=== PATIENT | female | born 1950 | race Caucasian/White ===

== ENCOUNTER 2020-09-15 09:35 | Outpatient (REF) | payer MEDICARE, SELFPAY ==
--- NOTE | 2020-09-15 09:43 | MM_ITS ---
EXAMINATION: BONE DENSITOMETRY CLINICAL INDICATION: Osteoporosis. COMPARISON: Previous BD dated 04/26/2018 and baseline BD dated 04/21/2016. TECHNIQUE: Using a [employer] DXA System (software version: 13.1) manufactured by [employer], dual-energy x-ray absorptiometry was performed of the lumbar spine and left hip. The images are of good technical quality. Summary results are attached. FINDINGS: AP SPINE L1-L4: Current: BMD 0.879 g/cm2, Z-score -1.0, T-score -2.5, osteoporosis, 3.1% decrease from previous, 0.7% decrease from baseline (<5% change is not significant). Prior: BMD 0.907 g/cm2. Baseline: BMD 0.885 g/cm2. LEFT FEMUR, NECK: Current: BMD 0.722 g/cm2, Z-score -0.6, T-score -2.3, osteopenia. Prior: BMD 0.723 g/cm2. Baseline: BMD 0.676 g/cm2. LEFT FEMUR, TOTAL: Current: BMD 0.795 g/cm2, Z-score -0.3, T-score -1.7, osteopenia, 0.5% increase from previous, 15.2% increase from baseline (<5% change is not significant). Prior: BMD 0.791 g/cm2. Baseline: BMD 0.690 g/cm2. IDENTIFIED RISK FACTORS: Secondary osteoporosis, glucocorticoids (chronic), menopause. HISTORY OF FRACTURE: None listed. MEDICATIONS: Calcium supplements or multivitamin, vitamin D. MM/XR DEXA axial skeleton IMPRESSION: 1. DIAGNOSIS: Osteoporosis based on the lowest T-score value of -2.5 in the lumbar spine applying World Health Organization criteria. 2. 10-YEAR FRACTURE RISK PREDICTION, FRAX: Major osteoporotic fracture (clinical spine, forearm, hip or shoulder) 21.9%. Hip fracture 6.2%. 3. Treatment Recommendations: NOF guidelines recommend consideration for treatment in postmenopausal women and men age 50 and older presenting with the following: -A hip or vertebral (clinical or morphometric) fracture. -T-score less than or equal to -2.5 at the femoral neck or spine after appropriate evaluation to exclude secondary causes. -Low bone mass at the hip or spine and a 10-year fracture probability by FRAX of greater than or equal to 3% for hip fracture or greater than or equal to 20% for major osteoporotic fracture based on the [place] adapted WHO algorithm. 4. Other Recommendations: All treatment decisions require clinical judgment and consideration of individual patient factors, including patient preferences, comorbidities, previous drug use, risk factors not captured in the FRAX model (e.g. frailty, falls, vitamin D deficiency, increased bone turnover, interval significant decline in bone density) and possible under or overestimation of fracture risk by FRAX. Additional medical evaluation for secondary cause of low bone mineral density may be appropriate. FUTURE SCAN RECOMMENDATION: People with diagnosed cases of osteoporosis or at high risk for fracture should have regular bone mineral density tests. For patients eligible for Medicare, routine testing is allowed once every 2 years. The testing frequency can be increased to one year for patients who have rapidly progressing disease, those who are receiving or discontinuing medical therapy to restore bone mass, or have additional risk factors.
== END 2020-09-15 09:36 | disposition home or self-care (01) ==
LOC: HO.MAMMO 09:35
PROVIDERS: PCP Internal Medicine; Visit Provider Internal Medicine
DX: M81.0 Age-related osteoporosis without current pathological fracture (principal)
CPT/HCPCS: 77080

== ENCOUNTER 2021-07-14 09:52 | Outpatient (REF) | payer MEDICARE, SELFPAY ==
--- NOTE | ~2021-07-14 | MM_ITS ---
EXAMINATION: MM SCREENING DIGITAL BREAST TOMOSYNTHESIS, BILATERAL CLINICAL INFORMATION: Screening. Asymptomatic. Right breast biopsy 2016 (benign fibrotic breast tissue). The lifetime risk of breast cancer based on the Tyrer-Cuzick Model is 4%. COMPARISON: Mammography: 07/08/2020, 07/03/2019, 06/08/2018 TECHNIQUE: Digital breast tomosynthesis is performed in both the craniocaudal and mediolateral oblique views along with computer-aided detection (CAD). Synthesized 2D images are generated from the tomosynthesis. FINDINGS: There are scattered areas of fibroglandular density (ACR BI-RADS breast composition Category b). There are no significant masses, abnormal calcifications, or other abnormalities. Parenchymal pattern is similar to prior studies. There is stable parenchymal asymmetry mid 4:00 right breast with adjacent biopsy clip marker. No developing density. The axilla are unremarkable. There are no significant changes. MM/MM tomosynthesis screening BI IMPRESSION: No mammographic evidence of malignancy. ASSESSMENT: BI-RADS 2: Benign RECOMMENDATION: Routine annual mammography screening. This patient's information was entered into a reminder system with a target due date for their next mammogram.
== END 2021-07-14 09:53 | disposition home or self-care (01) ==
LOC: HO.MAMMO 09:52
PROVIDERS: PCP Internal Medicine; Visit Provider Internal Medicine
DX: Z12.31 Encounter for screening mammogram for malignant neoplasm of breast (principal)
CPT/HCPCS: 77063; 77067

== ENCOUNTER 2023-03-08 07:19 | Outpatient (REF) | payer MEDICARE, SELFPAY ==
[2023-03-08 07:27] LABS: MANUAL DIFF FLAG NO
[2023-03-08 08:04] LABS: Basophils Absolute Auto 0.1 X10*3/uL (0.0-0.2); Basophils Percent Auto 1.2 % (0-2); Eosinophils Absolute Auto 0.2 X10*3/uL (0.0-0.4); Eosinophils Percent Auto 2.3 % (0-4); Hematocrit 38.8 % (37.0-47.0); Hemoglobin 12.3 g/dl (12.0-16.0); Imm Gran Abs Auto 0.02 X10*3/uL (0.00-0.03); Imm Gran Pct Auto 0.3 % (0.0-0.4); Lymphocytes Absolute Auto 2.1 X10*3/uL (1.2-4.9); Lymphocytes Percent Auto 28.2 % (20-40); Mean Corpuscular HGB Conc 31.7 g/dl (31.0-35.0); Mean Corpuscular Hemoglobin 28.9 pg (27.0-33.0); Mean Corpuscular Volume 91.3 fL (80.0-98.0); Mean Platelet Volume 9.7 fL (9.4-12.3); Monocytes Absolute Auto 0.8 X10*3/uL (0.1-1.2); Monocytes Percent Auto 10.8 % (2-11); Neutrophils Absolute Auto 4.3 x10*3/uL (2.0-8.3); Neutrophils Percent Auto 57.2 % (45-73); Platelet Count 376 X10*3/uL (160-400); Red Blood Count 4.25 X10*6/uL (4.20-5.50); Red Cell Distribution Width 12.3 % (11.0-16.0); White Blood Count 7.4 X10*3/uL (4.8-10.8)
[2023-03-08 08:16] LABS: Alanine Aminotransferase 22 U/L (0-31); Albumin Level 4.2 g/dL (3.5-5.0); Alkaline Phosphatase 73 U/L (39-117); Anion Gap 13 (12-20); Aspartate Amino Transferase 23 U/L (5-31); Bilirubin Total 0.4 mg/dL (0.0-1.0); Blood Urea Nitrogen 7 mg/dL (9-16); Calcium 9.3 mg/dL (8.4-10.2); Carbon Dioxide 30 mmol/L (22-29); Chloride 107 mmol/L (96-108); Cholesterol 214 mg/dL; Estimated Glomerular Filt Rate > 60; Glucose Random 90 mg/dL (60-115); HDL Cholesterol 66 mg/dL; LDL Cholesterol Calculated 134 mg/dl; Potassium 4.5 mmol/L (3.3-5.1); Sodium 145 mmol/L (135-145); Total Protein 6.3 g/dL (6.5-8.0); Triglycerides 70 mg/dL
[2023-03-08 08:45] LABS: Folate 10.8 ng/mL (> or = 4.0); Free T4 (Free Thyroxine) 0.88 ng/dL (0.71-1.85); Thyroid Stimulating Hormone 2.64 uIU/mL (0.32-4.0); Vitamin B12 405 pg/mL (200-900); Vitamin D 25-OH Total 35.7 ng/mL (>30)
== END 2023-03-08 07:20 | disposition home or self-care (01) ==
LOC: HO.LAB 07:19
PROVIDERS: PCP Internal Medicine; Visit Provider Internal Medicine
DX: E78.00 Pure hypercholesterolemia, unspecified (principal); M81.0 Age-related osteoporosis without current pathological fracture
CPT/HCPCS: 36415; 80053; 80061; 82306; 82607; 82746; 84439; 84443; 85025

== ENCOUNTER 2023-04-06 08:27 | Outpatient (REF) | payer MEDICARE, SELFPAY ==
--- NOTE | ~2023-04-06 | MM_ITS ---
EXAMINATION: MM SCREENING DIGITAL BREAST TOMOSYNTHESIS, BILATERAL CLINICAL INFORMATION: Screening. Asymptomatic. The lifetime risk of breast cancer based on the Tyrer-Cuzick Model is 4%. COMPARISON: Mammography: 07/14/2021, 07/08/2020, 07/03/2019, 06/08/2018 12/08/2017, 06/06/2017 TECHNIQUE: Digital breast tomosynthesis is performed in both the craniocaudal and mediolateral oblique views along with computer-aided detection (CAD). Synthesized 2D images are generated from the tomosynthesis. FINDINGS: There are scattered areas of fibroglandular density (ACR BI-RADS breast composition Category b). There are no significant masses, abnormal calcifications, or other abnormalities. There is fibronodular parenchymal pattern similar to prior exams. There is no developing density or architectural abnormality. Biopsy clip marker again seen mid lower inner right breast. The axilla and skin contours are unremarkable. No significant changes from prior studies. MM/MM tomosynthesis screening BI IMPRESSION: No mammographic evidence of malignancy. ASSESSMENT: BI-RADS 2: Benign RECOMMENDATION: Routine annual mammography screening. This patient's information was entered into a reminder system with a target due date for their next mammogram.
--- NOTE | ~2023-04-06 | MM_ITS ---
EXAMINATION: BONE DENSITOMETRY CLINICAL INDICATION: Age-related osteoporosis without current pathological fracture. COMPARISON: Previous BD dated 09/15/2020 and baseline BD dated 04/21/2016. TECHNIQUE: Using a [employer] DXA System (software version: 13.1) manufactured by [employer] dual-energy x-ray absorptiometry was performed of the lumbar spine and left hip. The images are of good technical quality. Summary results are attached. FINDINGS: AP SPINE L1-L4: Current: BMD 0.910 g/cm2, Z-score -0.6, T-score -2.3, osteopenia, 3.5% increase from previous, 2.8% increase from baseline (<5% change is not significant). Prior: BMD 0.879 g/cm2. Baseline: BMD 0.885 g/cm2. LEFT FEMUR, NECK: Current: BMD 0.643 g/cm2, Z-score -1.0, T-score -2.8, osteoporosis. Prior: BMD 0.722 g/cm2. Baseline: BMD 0.676 g/cm2. LEFT FEMUR, TOTAL: Current: BMD 0.731 g/cm2, Z-score -0.6, T-score -2.2, osteopenia, 8.1% decrease from previous, 5.9% increase from baseline (<5% change is not significant). Prior: BMD 0.795 g/cm2. Baseline: BMD 0.690 g/cm2. IDENTIFIED RISK FACTORS: Secondary osteoporosis (hyperthyroidism). Chronic glucocorticoids. Menopause. HISTORY OF FRACTURE: None listed. MEDICATIONS: Vitamin D. MM/XR DEXA axial skeleton IMPRESSION: 1. DIAGNOSIS: Osteoporosis based on the lowest T-score value of -2.8 in the femoral neck applying World Health Organization criteria. 2. 10-YEAR FRACTURE RISK PREDICTION, FRAX: According to the guidelines, FRAX calculation should only be performed on patients in the osteopenia bone density category.?Therefore, FRAX was not performed on this patient.? 3. Treatment Recommendations: NOF guidelines recommend consideration for treatment in postmenopausal women and men age 50 and older presenting with the following: -A hip or vertebral (clinical or morphometric) fracture. -T-score less than or equal to -2.5 at the femoral neck or spine after appropriate evaluation to exclude secondary causes. -Low bone mass at the hip or spine and a 10-year fracture probability by FRAX of greater than or equal to 3% for hip fracture or greater than or equal to 20% for major osteoporotic fracture based on the [place] adapted WHO algorithm. 4. Other Recommendations: All treatment decisions require clinical judgment and consideration of individual patient factors, including patient preferences, comorbidities, previous drug use, risk factors not captured in the FRAX model (e.g. frailty, falls, vitamin D deficiency, increased bone turnover, interval significant decline in bone density) and possible under or overestimation of fracture risk by FRAX. Additional medical evaluation for secondary cause of low bone mineral density may be appropriate. FUTURE SCAN RECOMMENDATION: People with diagnosed cases of osteoporosis or at high risk for fracture should have regular bone mineral density tests. For patients eligible for Medicare, routine testing is allowed once every 2 years. The testing frequency can be increased to one year for patients who have rapidly progressing disease, those who are receiving or discontinuing medical therapy to restore bone mass, or have additional risk factors.
== END 2023-04-06 08:28 | disposition home or self-care (01) ==
LOC: HO.MAMMO 08:27
PROVIDERS: PCP Internal Medicine; Visit Provider Internal Medicine
DX: Z12.31 Encounter for screening mammogram for malignant neoplasm of breast (principal); Z13.820 Encounter for screening for osteoporosis; Z78.0 Asymptomatic menopausal state; M81.0 Age-related osteoporosis without current pathological fracture
CPT/HCPCS: 77063; 77067; 77080

== ENCOUNTER 2024-02-28 12:19 | Outpatient (AMB) | payer MEDICARE, SELFPAY ==
[2024-02-28 12:24] VITALS: BP 130/72; PULSE 67; O2SAT 98; BMI 26.2
--- NOTE | 2024-02-28 12:24 | MHC.PC.OV ---
Vital Signs 02/28/24 12:24 Height 5 ft 5.5 in Weight 160 lb BMI 26.2 BP 130/72 Blood Pressure Location Lt brachial Position Sitting Pulse 67 Pulse Source Pulse Oximeter Pulse Oximetry (%) 98 Oxygen Delivery Method Room Air Intake Visit Reasons: PE Allergies No Known Allergies [No Known Allergies*] Allergy (Verified 02/28/24 12:25) Medication List - Last Reconciled 02/28/24 by Birgit Taveras MD albuterol sulfate 90 mcg/actuation 2 puffs PO Q6H PRN cholecalciferol (vitamin D3) 50 mcg PO DAILY [id number]-Mn 500-400-667 mg-mg-unit caps PO [herbs by doctor ] Tobacco use date assessed: 02/28/24 Fall risk assessment: No Falls in past year Last assessed Fall Risk: 02/28/24 Dental Screening Dental Screen Date: 02/28/24 Did you have a dental visit in the last 12 months?: Yes Did you have a dental problem in the last 6 months where you did not have access to dental care?: No Was dental information given to patient?: Patient has dentist HPI PE HPI Details 74-year-old female with a history of asthma hypercholesterolemia osteoporosis coming in for physical exam. Patient had an elevated blood pressure at that time and advised to monitor. [facility] Medical History (Updated 02/28/24 @ 12:30 by Birgit Taveras MD) Colon cancer screening Breast cancer screening Surgical History (Updated 02/15/23 @ 20:26 by Birgit Taveras MD) History of nasal surgery Hx of tonsillectomy Family History (Updated 02/21/23 @ 12:59 by Gwendolyn Lynn CMA) Mother Dementia Father Diabetes Brother No problems noted. Sister No problems noted. Social History (Updated 02/28/24 @ 12:36 by Birgit Taveras MD) Housing: Apartment Alcohol intake: current Comment: once Q 3 months glass of wine Patient Tobacco Use Status: Former Tobacco user Quit Date: 1985 Tobacco use type: Cigarette Years Smoked: 1985 quit e-Cigarette/Vaping Use: Never Used Second Hand Smoke Exposure: No Current occupational status: employed Cognitive needs: No Hearing needs: No Vision needs: Yes Questionnaire PHQ-9 Over the last 2 weeks, how often have you been bothered by any of the following problems? 1. Little interest or pleasure in doing things: not at all 2. Feeling down, depressed, or hopeless: not at all 3. Trouble falling or staying asleep, or sleeping too much: not at all 4. Feeling tired or having little energy: not at all 5. Poor appetite or overeating: not at all 6. Feeling bad about yourself - or that you are a failure or have let yourself or your family down: not at all 7. Trouble concentrating on things, such as reading the newspaper or watching television: not at all 8. Moving or speaking so slowly that other people could have noticed. Or the opposite - being so fidgety or restless that you have been moving around a lot more than usual: not at all 9. Thoughts that you would be better off or of hurting yourself in some way: not at all Total score: 0 Depression Screening Interpretation: Negative Depression Screening Done: Yes Source: Developed by Drs. Bj Macedo, Yolanda Sylvester, Omar White and colleagues, with an educational gareth from [employer]. Thrive Questionnaire Date Thrive assessed: 02/28/24 I am a: Patient What is your living situation today?: I have a steady place to live Within the past 12 months, did the food you bought not last and you didn't have the money to get more?: Never true Within the past 12 months, did you worry whether your food would run out before you got money to buy more?: Never true Do you have trouble paying for medicines?: No Do you have trouble getting transportation to medical appointments?: No Do you have trouble paying your heating and electricity bill?: No Do you have trouble taking care of your child, family member or friend?: No Do you have trouble with day-to-day activities such as bathing, preparing meals, shopping, managing finances, etc.?: No Are you currently unemployed and looking for a job?: No Are you interested in more education?: No Currently or been in a relationship where the following occur: no concerns reported THRIVE Score: 0 AUDIT C Alcohol Use Questionnaire (AUDIT-C) 1. How often do you have a drink containing alcohol?: Monthly or less 2. How many drinks containing alcohol do you have on a typical day when you are drinking?: 1 or 2 3. How often do you have six or more drinks on one occasion?: Never Total Score: 1 YORDAN-7 AMB Questionnaire YORDAN-7 Date YORDAN - 7 assessed: 02/28/24 Feeling nervous, anxious, or on edge: 0 = Not at all Not being able to stop or control worryin = Not at all Worrying too much about different things: 0 = Not at all Trouble relaxin = Not at all Being so restless that it is hard to sit still: 0 = Not at all Becoming easily annoyed or irritable: 0 = Not at all Feeling afraid as if something awful might happen: 0 = Not at all Total YORDAN-7 score (0-4 normal; 5-9 mild; 10-14 moderate; 15-21 severe): 0 Source: Developed by Drs. Bj Macedo, Yolanda Sylvester, Omar White and colleagues, with an educational gareth from [employer]. Review of Systems Const Denies poor appetite and Denies weakness Eyes Denies no additional complaints ENT Reports Normal hearing present, Denies dizziness, Denies nasal congestion, Denies tinnitus and Denies sore throat Card Denies chest pain, Denies syncope, Denies rapid heart rate and Denies dyspnea Resp Denies cough and Denies dyspnea GI Denies change in stool character, Reports constipation, Denies diarrhea, Denies nausea and Denies vomiting Denies urinary frequency, Denies difficulty voiding and Denies dysuria Neuro Reports Normal hearing present, Denies confusion, Denies dizziness, Denies syncope and Denies weakness Psych Denies confusion Physical exam (Primary Care) Vital Signs: Last Vital Signs Pulse 67 02/28/24 12:24 BP 130/72 02/28/24 12:24 Pulse Ox 98 02/28/24 12:24 Oxygen Delivery Method Room Air 02/28/24 12:24 BMI result Body Mass Index 26.2 Tobacco/Smoking Status: Tobacco use Status Tobacco use date assessed 02/28/24 02/28/24 12:30 Patient Tobacco Use Status Former Tobacco user 02/28/24 12:36 Tobacco use type Cigarette 02/28/24 12:36 e-Cigarette/Vaping Use Never Used 02/28/24 12:36 PHQ-9: PHQ-9 Score PHQ-9: Total score 0 02/28/24 12:30 Depression Screening Interpretation: Negative Thrive Assessment: Date of Thrive Assessment Date Thrive assessed 02/28/24 02/28/24 12:30 Currently or been in a relationship where the following occur: no concerns reported Const General: No confusion Orientation/consciousness: No confusion HENMT Head: Yes normocephalic Ears: external ears normal and TM's normal bilaterally Face and sinus: Yes normal facial exam Mouth: moist mucous membranes Throat: Yes tonsils normal Eyes Conjunctivae: conjunctivae normal Pupils: Equal, round and reactive pupils present and Pupil accommodation reflex normal Direct Ophthalmoscopy: normal light reflex Neck Neck: No lymphadenopathy Thyroid: Thyroid normal Chest Chest palpation & inspection: normal inspection of the chest Resp Effort & Inspection: normal respiratory effort and no audible wheezes Auscultation: clear to auscultation bilaterally, no crackles, no wheezes and lung sounds not diminished Cardio Rate: regular rate Rhythm: regular rhythm Peripheral pulses: radial pulses present and dorsalis pedis present GI Palpation (GI): no masses Auscultation: normal bowel sounds and normoactive bowel sounds Rectal Exam - Female: deferred Skin General skin exam: no rashes or lesions noted Rashes: no rashes Neuro General: No confusion Cranial nerves: Yes Equal, round and reactive pupils present and Yes Normal hearing present Cognition (Neuro): normal cognition Gait exam (Neuro): Normal gait present Motor exam (neuro): 5/5 motor strength present throughout Deep tendon reflexes (DTR's): Right brachioradialis reflex intensity grade: 2+, Left brachioradialis reflex intensity grade: 2+, Right patellar reflex intensity grade: 2+ and Left patellar reflex intensity grade: 2+ Extrem General: No edema Assessment and Plan Assessment & Plan (1) Annual physical exam: Code(s): Z00.00 - Encounter for general adult medical examination without abnormal findings (2) Osteoporosis: Code(s): M81.0 - Age-related osteoporosis without current pathological fracture Plan: Continue with vitamin-D, have adequate calcium in the diet keep active discussion about treatment. (3) Hypercholesterolemia: Code(s): E78.00 - Pure hypercholesterolemia, unspecified Plan: Avoid fried foods, chicken skin, eggs, butter margarine, pastries and meat. Be it pork or beef they have a lot of cholesterol LDL goal of less than 130 and triglyceride of less than 150. (4) Asthma: Code(s): J45.909 - Unspecified asthma, uncomplicated Plan: Continue with the inhaler as needed (5) Blood pressure elevated without history of HTN: Code(s): R03.0 - Elevated blood-pressure reading, without diagnosis of hypertension Plan: Continue to monitor blood pressure (6) Colon cancer screening: Comment: Declined colonoscopy, Cologuard April 01- Code(s): Z12.11 - Encounter for screening for malignant neoplasm of colon Plan: Cologuard test March 2023 negative Coding Level of Care Code Est Pt Prev Care >65y(21333) Diagnoses Annual physical exam Z00.00 Osteoporosis M81.0 Hypercholesterolemia E78.00 Asthma J45.909 Blood pressure elevated without history of HTN R03.0 Colon cancer screening Z12.11
== END 2024-02-28 12:50 | disposition home or self-care (01) ==
PROVIDERS: Visit Provider Internal Medicine
DX: Z00.00 Encounter for general adult medical examination without abnormal findings (principal); M81.0 Age-related osteoporosis without current pathological fracture; E78.00 Pure hypercholesterolemia, unspecified; J45.909 Unspecified asthma, uncomplicated; R03.0 Elevated blood-pressure reading, without diagnosis of hypertension; Z12.11 Encounter for screening for malignant neoplasm of colon
CPT/HCPCS: 99397

== ENCOUNTER 2025-03-05 12:27 | Outpatient (AMB) | payer MEDICARE, SELFPAY ==
--- NOTE | 2025-03-05 12:42 | A.OFFPC_ITS ---
Vital Signs 03/05/25 12:44 03/05/25 13:09 Height 5 ft 5.5 in Weight 161 lb 2 oz BMI 26.4 BP 140/80 H 130/70 Blood Pressure Location Lt brachial Lt brachial Position Sitting Sitting Pulse 64 Pulse Source Pulse Oximeter Temp 97.5 F Temp Source Temporal Artery Scan Pulse Oximetry (%) 97 Oxygen Delivery Method Room Air Intake Visit Reasons: Annual exam - see comments Intake Note: Patient is here today for a physical. 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 per policy Accompanied by: Self / Same As Patient Allergies No Known Allergies [No Known Allergies*] Allergy (Verified 03/05/25 12:43) Medication List - Last Reconciled 03/05/25 by Birgit Taveras MD cholecalciferol (vitamin D3) 50 mcg PO DAILY [id number]-Mn 500-400-667 mg-mg-unit caps PO [herbs by doctor ] [NUTRAVIEW- Melaluca ] Tobacco use date assessed: 03/05/25 Fall risk assessment: No Falls in past year Last assessed Fall Risk: 03/05/25 Dental Screening Dental Screen Date: 03/05/25 Did you have a dental visit in the last 12 months?: Yes Did you have a dental problem in the last 6 months where you did not have access to dental care?: No Was dental information given to patient?: Patient has dentist [facility] Medical History (Updated 02/28/24 @ 12:30 by Birgit Taveras MD) Colon cancer screening Breast cancer screening Surgical History History of nasal surgery Hx of tonsillectomy Family History Mother Dementia Father Diabetes Brother No problems noted. Sister No problems noted. Social History (Updated 03/05/25 @ 13:13 by Birgit Taveras MD) Housing: Apartment Alcohol intake: current Comment: once Q 6 months glass of wine Patient Tobacco Use Status: Former Tobacco user Tobacco use type: Cigarette Years Smoked: 1985 quit e-Cigarette/Vaping Use: Never Used Second Hand Smoke Exposure: Yes service: No Current occupational status: employed Cognitive needs: No Hearing needs: No Vision needs: Yes Questionnaire PHQ-9 Over the last 2 weeks, how often have you been bothered by any of the following problems? 1. Little interest or pleasure in doing things: not at all 2. Feeling down, depressed, or hopeless: not at all 3. Trouble falling or staying asleep, or sleeping too much: not at all 4. Feeling tired or having little energy: not at all 5. Poor appetite or overeating: not at all 6. Feeling bad about yourself - or that you are a failure or have let yourself or your family down: not at all 7. Trouble concentrating on things, such as reading the newspaper or watching television: not at all 8. Moving or speaking so slowly that other people could have noticed. Or the opposite - being so fidgety or restless that you have been moving around a lot more than usual: not at all 9. Thoughts that you would be better off or of hurting yourself in some way: not at all Total score: 0 Depression Screening Interpretation: Negative Depression Screening Done: Yes Source: Developed by Drs. Bj Macedo, Yolanda Sylvester, Omar White and colleagues, with an educational gareth from [employer]. Thrive Questionnaire Date Thrive assessed: 03/05/25 I am a: Patient What is your living situation today?: I have a steady place to live Within the past 12 months, did the food you bought not last and you didn't have the money to get more?: Never true Within the past 12 months, did you worry whether your food would run out before you got money to buy more?: Never true Do you have trouble paying for medicines?: No Do you have trouble getting transportation to medical appointments?: No Do you have trouble paying your heating and electricity bill?: No Do you have trouble taking care of your child, family member or friend?: No Do you have trouble with day-to-day activities such as bathing, preparing meals, shopping, managing finances, etc.?: No Are you currently unemployed and looking for a job?: No Are you interested in more education?: No Please select the resources that you would like help with: None Currently or been in a relationship where the following occur: No concerns reported THRIVE Score: 0 AUDIT C Alcohol Use Questionnaire (AUDIT-C) 1. How often do you have a drink containing alcohol?: Monthly or less 2. How many drinks containing alcohol do you have on a typical day when you are drinking?: 1 or 2 Total Score: 1 YORDAN-7 AMB Questionnaire YORDAN-7 Date YORDAN - 7 assessed: 03/05/25 Feeling nervous, anxious, or on edge: 0 = Not at all Not being able to stop or control worryin = Not at all Worrying too much about different things: 0 = Not at all Trouble relaxin = Not at all Being so restless that it is hard to sit still: 0 = Not at all Becoming easily annoyed or irritable: 0 = Not at all Feeling afraid as if something awful might happen: 0 = Not at all Total YORDAN-7 score (0-4 normal; 5-9 mild; 10-14 moderate; 15-21 severe): 0 Source: Developed by Drs. Bj Macedo, Yolanda Sylvester, mOar White and colleagues, with an educational gareth from [employer]. Review of Systems Const Denies poor appetite and Denies weakness Eyes Denies no additional complaints ENT Reports Normal hearing present, Denies dizziness, Denies nasal congestion, Denies tinnitus and Denies sore throat Card Denies chest pain, Denies syncope, Denies rapid heart rate and Denies dyspnea Resp Denies cough and Denies dyspnea GI Denies change in stool character, Reports constipation, Denies diarrhea, Denies nausea and Denies vomiting Denies urinary frequency, Denies difficulty voiding and Denies dysuria Neuro Reports Normal hearing present, Denies confusion, Denies dizziness, Denies syncope and Denies weakness Psych Denies confusion Physical exam (Primary Care) Vital Signs: Last Vital Signs Temp 97.5 F 03/05/25 12:44 Pulse 64 03/05/25 12:44 BP 130/70 03/05/25 13:09 Pulse Ox 97 03/05/25 12:44 Oxygen Delivery Method Room Air 03/05/25 12:44 BMI result Body Mass Index 26.4 Tobacco/Smoking Status: Tobacco use Status Tobacco use date assessed 03/05/25 03/05/25 12:49 Patient Tobacco Use Status Former Tobacco user 03/05/25 13:13 Tobacco use type Cigarette 03/05/25 13:13 e-Cigarette/Vaping Use Never Used 03/05/25 13:13 PHQ-9: PHQ-9 Score PHQ-9: Total score 0 03/05/25 13:11 Depression Screening Interpretation: Negative Thrive Assessment: Date of Thrive Assessment Date Thrive assessed 03/05/25 03/05/25 12:49 Currently or been in a relationship where the following occur: No concerns reported Const General: No confusion Orientation/consciousness: No confusion HENMT Head: Yes normocephalic Ears: external ears normal and TM's normal bilaterally Face and sinus: Yes normal facial exam Mouth: moist mucous membranes Throat: Yes tonsils normal Eyes Conjunctivae: conjunctivae normal Pupils: Equal, round and reactive pupils present and Pupil accommodation reflex normal Direct Ophthalmoscopy: normal light reflex Neck Neck: No lymphadenopathy Thyroid: Thyroid normal Chest Chest palpation & inspection: normal inspection of the chest Resp Effort & Inspection: normal respiratory effort and no audible wheezes Auscultation: clear to auscultation bilaterally, no crackles, no wheezes and lung sounds not diminished Cardio Rate: regular rate Rhythm: regular rhythm Peripheral pulses: radial pulses present and dorsalis pedis present GI Other: guaiac negative Palpation (GI): no masses Auscultation: normal bowel sounds and normoactive bowel sounds Skin General skin exam: no rashes or lesions noted Rashes: no rashes Neuro General: No confusion Cranial nerves: Yes Equal, round and reactive pupils present and Yes Normal hearing present Cognition (Neuro): normal cognition Gait exam (Neuro): Normal gait present Motor exam (neuro): 5/5 motor strength present throughout Deep tendon reflexes (DTR's): Right brachioradialis reflex intensity grade: 2+, Left brachioradialis reflex intensity grade: 2+, Right patellar reflex intensity grade: 2+ and Left patellar reflex intensity grade: 2+ Extrem Other: R plantar hard skin 1 mm General: No edema Coding Level of Care Code Est Pt Prev Care >65y(53207) Diagnoses Annual physical exam Z00. Hypercholesterolemia E78.00 Osteoporosis M81.0 Asthma J45.909 Assessment & Plan Assessment & Plan (1) Annual physical exam: Code(s): Z00.00 - Encounter for general adult medical examination without abnormal findings Category: Medical Plan: Patient is advised to eat healthy, keep well hydrated, keep active and have adequate sleep. (2) Hypercholesterolemia: Code(s): E78.00 - Pure hypercholesterolemia, unspecified Category: Medical Plan: Avoid fried foods, chicken skin, eggs, butter margarine, pastries and meat. Be it pork or beef they have a lot of cholesterol LDL goal of less than 130 and triglyceride of less than 150 (3) Osteoporosis: Code(s): M81.0 - Age-related osteoporosis without current pathological fracture Category: Medical Plan: Patient is reminded about bone density (4) Asthma: Code(s): J45.909 - Unspecified asthma, uncomplicated Category: Medical Plan: Stable Plan History of Present Illness The patient is a 75-year-old female presenting for a routine wellness visit and physical examination. Her medical history includes hypercholesterolemia, celiac disease, osteoporosis, asthma, and generalized anxiety disorder. She maintains awareness regarding her hypercholesterolemia, with her last recorded LDL at 134 mg/dL in 2022, and she aims to reduce it below 130 mg/dL. The patient's screening history includes a Cologuard test in March 2023, and she is due a bone density test next month. She expressed concerns about mammogram frequency, considering extending the interval to biennial due to radiation concerns, noting discrepancies in guidelines. The patient leads a lifestyle that limits pharmaceutical intake, using vitamin D and NutriView supplements. She has been informed of minor cataract development. Her social history reveals abstention from alcohol, smoking, and drugs, with past occasional wine consumption. The patient is proactive in maintaining physical activity but acknowledges that work demands hinder optimal exercise regularity. She is careful with caffeine intake and discussed a possible reduction to decaffeinated options. Health Maintenance - Cologuard test completed in March 2023 - Bone density test scheduled for next month - Discussed frequency of mammograms and relevant guidelines - Patient adheres to a vitamin D supplement regimen - Eye health monitored annually with noted cataract development - LDL management discussed with a target of less than 130 mg/dL - Discussed cholesterol management strategies Social History - Employment impacts ability to exercise regularly - Maintains a balanced vegetarian diet - Abstains from alcohol, tobacco, and recreational drugs - Limited caffeine intake, exploring decaffeinated options - Engages in weight-bearing exercise as tolerated Review of Systems - General: Denies malaise, fever, or weight changes - Cardiovascular: Denies chest pain or palpitations - Respiratory: Denies shortness of breath or cough - Gastrointestinal: Normal bowel movements, denies nausea or heartburn - Genitourinary: Occasional nocturia, no dysuria - Neurological: Denies dizziness or fainting - Musculoskeletal: Denies joint pains, acknowledges fatigue affecting exercise - Dermatological: Denies rash, reports skin tags Physical Exam General: Cooperative, healthy appearing, comfortable, no acute distress and well developed Orientation: Patient oriented x3 Limitations: No limitations Head: Normal to inspection Ears: Hearing grossly normal bilaterally, but noted to have a tiny canal with about 30% wax buildup Nose: Normal external nose present Face and sinus: Normal facial exam Eyes: Appearance normal, both eyes and all related structures, slight cataracts forming Neck: Normal visual inspection and Yes full ROM Respiratory: Normal respiratory effort and able to speak in complete sentences. Clear to auscultation bilaterally Cardiovascular: Regular rate and rhythm. Normal S1 and S2, presence of a heart murmur noted GI: Normal to inspection. Soft to palpation and nontender Skin: No rashes or lesions noted, presence of skin tags Neuro: Patient oriented x3 Extremities: Normal to inspection, noted to have a scar on the foot from stepping on an object Results - Labs: 2022 blood work showed normal blood count, electrolytes, renal, and liver function - Tests: Cologuard test (March 2023) completed - Diagnostics: Mammogram and bone density pending Plan The patient's hypercholesterolemia will be managed by striving for a reduction in her LDL levels, with particular emphasis on a lifestyle and dietary approach. The patient was advised on the timing and reasoning for mammogram and bone density screenings, aligning current practices with established guidelines. Continued vigilance in monitoring vitamin D levels and annual eye examinations for cataracts will be maintained. Planning around her work schedule to incorporate regular exercise remains a priority, considering osteoporosis. The patient's aversion to smoking, alcohol, and caffeine was recognized, and potential hydration effects were considered regarding nocturia. Patient was informed and verbally consented to the use of an ambient scribe for clinic note documentation during this visit. Discussion Notes I discussed with the patient the importance of managing her cholesterol levels by adhering to diet and lifestyle modifications. We reviewed the guidelines for mammogram frequency, highlighting differing recommendations based on age and organization. A forthcoming bone density test was scheduled, and the patient was informed of its necessity due to her osteoporosis. Annual blood work was discussed, stressing the need for fasting to assess cholesterol levels accurately. The patient was advised regarding the benefits of her current supplement regimen and encouraged to continue regular ophthalmological assessments given her early cataract development. The importance of maintaining a balanced exercise routine even with work-related fatigue was emphasized. I reiterated the value of hydration and the potential effects on nocturia, as well as limiting caffeine to maintain her current health status. Patient Instructions - Continue managing LDL cholesterol through diet and exercise - Schedule and attend a bone density test next month - Follow guidelines for mammograms; consult for scheduling - Maintain regular silk hanger visits for cataract monitoring - Balance work demands with adequate physical activity - Follow strategies for minimizing nocturia with optimal hydration timing - Monitor vitamin D levels and take supplements as directed - Adhere to fasting requirements before upcoming blood tests - Reach out with any new symptoms or health changes Orders: Orders XR DEXA axial skeleton Today M81.0 - Age-related osteoporosis without current pathological fracture Comprehensive Met. Panel Today E78.00 - Pure hypercholesterolemia, unspecified Free T4 (Free Thyroxine) Today E78.00 - Pure hypercholesterolemia, unspecified Vitamin B12 and Folate Today E78.00 - Pure hypercholesterolemia, unspecified Vitamin D 25-OH Total Today E78.00 - Pure hypercholesterolemia, unspecified Complete Blood Count Auto Diff Today E78.00 - Pure hypercholesterolemia, unspecified Thyroid Stimulating Hormone Today E78.00 - Pure hypercholesterolemia, unspecified Lipid Panel Today E78.00 - Pure hypercholesterolemia, unspecified
[2025-03-05 12:44] VITALS: BP 140/80; PULSE 64; TEMP 36.4; O2SAT 97; BMI 26.4
[2025-03-05 13:09] VITALS: BP 130/70
--- OUTSIDE RECORDS SUMMARY | 2025-03-05 14:40 | XMS_ITS | Patient Health Record ---
Author Organization [facility] Address [address] [place] [address] Care Team Providers Care Contract Driver Name Role Phone Birgit Taveras MD Primary Care Provider Bj Bhatt Unavailable [phone] oyula, ignatiuis Unavailable Unavailable Reason For Referral No Information Medications Medication SIG (Take, Route, Frequency, Duration) Notes Start Date End Date Status Ventolin HFA Active Problems Problem Type SNOMED Code ICD Code Onset Dates Problem Status W/U Status Risk Notes Problem 084012381 Celiac disease (K90.0) Active confirmed Problem [id number] Chronic fatigue (R53.82) Active confirmed Plan Of Treatment No Information Insurance Providers Payer Name Payer Address Payer Phone Subscriber Number Group Number Insured Name Patient Relationship to Insured Coverage Start Date Coverage End Date MEDICARE OF [place] [address] [facility] [place] [address] [id number] ERICADANIEL MONICAA Self - patient is the insured [employer] ATT[employer] CLAIMS [address] [place] [address] [phone] [id number] RADHA CLARK Self - patient is the insured Medical (General) History Medical History History ICD Code Denies KS,DM,CVA,Lung disease,renal dise ase Diagnosed with celiac diseas e in 12/2014 with duodenal biopsies and positive celiac disease serologies--at that time she presented with prolonged diarrhea, severe hypoalbuminemia, and significant edema--- she has improved markedly on a on a strict gluten-free diet Colonoscopy in 2011 while [facility] [place] [place] with removal of some polyps--she was told to have another colonoscopy in 2017---but the report showed only hyperplastic polyps and normal colon biopsies Asthma Surgical History Surgery Date(Month/Year) Broken nose biopsy right breast benign 2016
== END 2025-03-05 13:32 | disposition home or self-care (01) ==
LOC: HO.HMCH 12:27
PROVIDERS: PCP Internal Medicine; Visit Provider Internal Medicine
DX: Z00.00 Encounter for general adult medical examination without abnormal findings (principal); E78.00 Pure hypercholesterolemia, unspecified; M81.0 Age-related osteoporosis without current pathological fracture; J45.909 Unspecified asthma, uncomplicated

== ENCOUNTER → 2025-03-05 12:27 | Outpatient (BNVA) | payer MEDICARE, SELFPAY | PROVIDERS: PCP Internal Medicine; Visit Provider Internal Medicine | DX: Z00.00 Encounter for general adult medical examination without abnormal findings (principal); E78.00 Pure hypercholesterolemia, unspecified; M81.0 Age-related osteoporosis without current pathological fracture; J45.909 Unspecified asthma, uncomplicated | CPT/HCPCS: 99397 ==

== ENCOUNTER 2025-03-14 06:33 | Outpatient (REF) | payer MEDICARE, SELFPAY ==
[2025-03-14 06:47] LABS: MANUAL DIFF FLAG NO
[2025-03-14 07:17] LABS: Basophils Absolute Auto 0.1 X10*3/uL (0.0-0.2); Basophils Percent Auto 1.1 % (0-2); Eosinophils Absolute Auto 0.3 X10*3/uL (0.0-0.4); Eosinophils Percent Auto 4.1 % (0-4); Hemoglobin 12.8 g/dl (12.0-16.0); Imm Gran Abs Auto 0.02 X10*3/uL (0.00-0.03); Imm Gran Pct Auto 0.3 % (0.0-0.4); Lymphocytes Absolute Auto 1.9 X10*3/uL (1.2-4.9); Mean Corpuscular HGB Conc 32.8 g/dl (31.0-35.0); Mean Corpuscular Hemoglobin 29.4 pg (27.0-33.0); Mean Corpuscular Volume 89.4 fL (80.0-98.0); Mean Platelet Volume 9.3 fL (9.4-12.3); Monocytes Absolute Auto 0.7 X10*3/uL (0.1-1.2); Monocytes Percent Auto 10.9 % (2-11); Neutrophils Absolute Auto 3.7 x10*3/uL (2.0-8.3); Neutrophils Percent Auto 55.6 % (45-73); Platelet Count 361 X10*3/uL (160-400); Red Blood Count 4.36 X10*6/uL (4.20-5.50); Red Cell Distribution Width 12.7 % (11.0-16.0); White Blood Count 6.6 X10*3/uL (4.8-10.8)
[2025-03-14 07:50] LABS: Alanine Aminotransferase 27 U/L (0-31); Albumin Level 4.3 g/dL (3.5-5.0); Alkaline Phosphatase 67 U/L (39-117); Anion Gap 13 (12-20); Aspartate Amino Transferase 26 U/L (5-31); Bilirubin Total 0.4 mg/dL (0.0-1.0); Blood Urea Nitrogen 9 mg/dL (9-16); Calcium 9.3 mg/dL (8.4-10.2); Carbon Dioxide 28 mmol/L (22-29); Chloride 109 mmol/L (96-108); Cholesterol 209 mg/dL (<200); Estimated Glomerular Filt Rate > 60; Glucose Random 93 mg/dL (60-115); HDL Cholesterol 69 mg/dL (>40); LDL Cholesterol Calculated 127 mg/dL (<100); Potassium 4.2 mmol/L (3.3-5.1); Sodium 146 mmol/L (135-145); Triglycerides 66 mg/dL (<150)
[2025-03-14 08:06] LABS: Free T4 (Free Thyroxine) 0.99 ng/dL (0.71-1.85); Thyroid Stimulating Hormone 3.87 uIU/mL (0.32-4.0); Vitamin D 25-OH Total 57.1 ng/mL (>30)
[2025-03-14 08:18] LABS: Folate 4.5 ng/mL (> or = 4.0); Vitamin B12 254 pg/mL (200-900)
== END 2025-03-14 06:34 | disposition home or self-care (01) ==
LOC: HO.LAB 06:33
PROVIDERS: PCP Internal Medicine; Visit Provider Internal Medicine
DX: E78.00 Pure hypercholesterolemia, unspecified (principal)
CPT/HCPCS: 36415; 80053; 80061; 82306; 82607; 82746; 84439; 84443; 85025

== ENCOUNTER 2025-04-09 10:48 | Outpatient (REF) | payer MEDICARE, SELFPAY ==
--- NOTE | ~2025-04-09 | MM_ITS ---
EXAMINATION: DXA BONE DENSITY AXIAL HISTORY: M81.0 - Age-related osteoporosis without current pathological fracture TECHNIQUE: [email or web address] Dual energy absorptiometry (DEXA) of the lumbar spine, total left hip, and femoral neck was performed. COMPARISON: Comparison is made with the prior examination dated 04/06/2023. FINDINGS: The bone mineral density of the lumbar spine is 0.781, corresponding to a T-score of -2.6, and a Z-score of -1.1. This is indicative of osteoporosis. This represents a BMD change of -4.3% compared to the prior exam. This is statistically significant. The bone mineral density of the left total hip is 0.751, corresponding to a T-score of -2.0, and a Z-score of -0.4. This is indicative of osteopenia. This represents a BMD change of 2.7% compared to the prior exam. This is statistically significant. The bone mineral density of the left femoral neck is 0.745, corresponding to a T-score of -2.1, and a Z-score of -0.3. This is indicative of osteopenia. This represents a BMD change of 15.9% compared to the prior exam. MM/XR DEXA axial skeleton IMPRESSION: Based on bone mineral density, and according to World Health Organization (WHO) criteria, the diagnosis is consistent with osteoporosis. All bone density values are in grams per centimeter squared (g/cm2). Statistically, 68% of repeat scans fall within 1 SD (+/- 0.010 g/cm2 for AP spine L1-L4) and 1 SD (+/- 0.012 g/cm2 for femur total) FRAX is a trademark of the [employer]'s [place] [facility] Met[employer] Disease, a World Health Organization (WHO) Collaborating Center. Electronically signed by: Bj Sheffield MD 04/09/2025 12:06 PM EDT
--- OUTSIDE RECORDS SUMMARY | 2025-04-09 11:53 | XMS_ITS | Patient Health Record ---
Author Organization [facility] Address [address] [place] [address] Care Team Providers Care Solderer Production Line Name Role Phone Birgit Taveras MD Primary Care Provider Bj Bhatt Unavailable [phone] oyula, ignatiuis Unavailable Unavailable Reason For Referral No Information Medications Medication SIG (Take, Route, Frequency, Duration) Notes Start Date End Date Status Ventolin HFA Active Problems Problem Type SNOMED Code ICD Code Onset Dates Problem Status W/U Status Risk Notes Problem [id number] Celiac disease (K90.0) Active confirmed Problem [id number] Chronic fatigue (R53.82) Active confirmed Plan Of Treatment No Information Insurance Providers Payer Name Payer Address Payer Phone Subscriber Number Group Number Insured Name Patient Relationship to Insured Coverage Start Date Coverage End Date MED[place]ARE OF [place] [address] [facility] [place] [address] [phone] [id number] ERICADANIEL MONICAA Self - patient is the insured [employer] ATTN CLAIMS [address] [place] [phone] [id number] RADHA CLARK Self - patient is the insured Medical (General) History Medical History History ICD Code Denies [place],DM,CVA,Lung disease,renal dise ase Diagnosed with celiac diseas e in 12/2014 with duodenal biopsies and positive celiac disease serologies--at that time she presented with prolonged diarrhea, severe hypoalbuminemia, and significant edema--- she has improved markedly on a on a strict gluten-free diet Colonoscopy in 2011 while [facility] in [place] with removal of some polyps--she was told to have another colonoscopy in 2017---but the report showed only hyperplastic polyps and normal colon biopsies Asthma Surgical History Surgery Date(Month/Year) Broken nose biopsy right breast benign 2016
== END 2025-04-09 10:49 | disposition home or self-care (01) ==
LOC: HO.MAMMO 10:48
PROVIDERS: PCP Internal Medicine; Visit Provider Internal Medicine
DX: M81.0 Age-related osteoporosis without current pathological fracture (principal)
CPT/HCPCS: 77080

== ENCOUNTER → 2025-04-09 11:00 | Outpatient (BNV) | payer MEDICARE, SELFPAY | PROVIDERS: PCP Internal Medicine; Visit Provider Radiology Diagnostic Radiology | DX: E28.39 Other primary ovarian failure (principal) | CPT/HCPCS: 77080 ==